=== PATIENT | female | born 1990 | race Caucasian/White ===

== ENCOUNTER 2017-03-17 01:02 | Emergency (ER) | payer MEDICAID ==
[2017-03-17 01:12] VITALS: TEMP 97.7
--- NOTE | 2017-03-17 01:14 | EDPHY ---
H & P Stated Complaint: ETOH Time Seen by Provider: 03/17/17 01:11 HPI/ROS: Chief Complaint: Alcohol intoxication, vomiting HPI: 26-year-old female who was found on a bench outside of the [facility] intoxicated. Patient passed out after drinking. Is unable to ambulate on their own. Patient brought in by EMS for further evaluation. No obvious signs of trauma per EMS. Remainder of history is unobtainable secondary to the patient's intoxication. ROS: Unobtainable secondary to the patient's intoxication PMH: Unknown Medications: Unknown Allergies: Unknown Social History: Positive for alcohol Family History: non-contributory Physical Exam: Gen: Somnolent, responds to painful stimuli, maintaining airway, smells of alcohol and emesis HEENT: Atraumatic Nose: no epistaxis or deformity Eyes: PERRLA, EOMI Mouth: Moist mucosa Neck: Supple, no step-offs or deformity Chest: Atraumatic, lungs clear to auscultation Heart: S1, S2 normal, no murmur Abd: Soft, non-tender, no guarding Back: Atraumatic Ext: no edema, atraumatic Skin: no rash Neuro: Sensation grossly intact, Strength 5/5 in bilateral upper and lower extremities - Personal History LMP (Females 10-55): Unknown Tetanus Vaccine Date: WITHIN 10 YRS - Medical/Surgical History Hx Asthma: No Hx Chronic Respiratory Disease: No Hx Diabetes: No Hx Cardiac Disease: No Hx Renal Disease: No Hx Cirrhosis: No Hx Alcoholism: No Hx HIV/AIDS: No Hx Splenectomy or Spleen Trauma: No Other PMH: ADHD; - Social History Smoking Status: Never smoked Constitutional: Initial Vital Signs Temperature (C) 36.5 C 03/17/17 01:11 Heart Rate 79 03/17/17 01:11 Respiratory Rate 15 03/17/17 01:11 Blood Pressure 115/65 03/17/17 01:11 O2 Sat (%) 95 03/17/17 01:11 O2 Delivery Mode Room Air Allergies/Adverse Reactions: Penicillins Allergy (Verified 03/17/17 01:19) Home Medications: Medication Instructions Recorded Lidocaine 2% Viscous [Lidocaine 2% 5 ml PO Q2-3PRN PRN #100 ml 01/18/15 Viscous (RX)] Adderall 10 MG (RX) 01/24/15 Cephalexin [Keflex] 500 mg PO TID #21 cap 01/24/15 Ibuprofen [Motrin (*)] 800 mg PO Q6-8PRN #30 tab 01/24/15 predniSONE 60 mg PO DAILY #3 tab 01/24/15 Medical Decision Making ED Course/Re-evaluation: 0605 Patient is now awake and appropriate. Ambulating unassisted to the bathroom. No current complaints. Medically cleared for discharge. Departure - Departure Disposition: Home, Routine, Self-Care Clinical Impression: Alcoholic intoxication Condition: Good Instructions: Alcohol Intoxication (ED) Additional Instructions: Please try to avoid binge drinking alcohol. Referrals: Leni Ulrich MD [Doctor of Osteopathy] - As per Instructions
[2017-03-17 04:18] VITALS: PULSE 100; RESP 16
[2017-03-17 06:17] VITALS: BP 100/63; O2SAT 100
== END 2017-03-17 08:48 | disposition home or self-care (01) ==
LOC: EDUNIT#
DX: F10.129 Alcohol abuse with intoxication, unspecified (principal)